=== PATIENT | female | born 1960 | race Caucasian/White ===

== ENCOUNTER 2025-09-30 15:25 | Emergency (ER) | payer MEDICARE, SELFPAY ==
--- OUTSIDE RECORDS SUMMARY | 2024-06-16 11:00 | XMS_ITS ---
Author Organization [facility] Address [address] [place] [address] Care Team Providers Care Garage Laborer Name Role Phone Graham Ham MD Primary Care Provider Luz Elena Alan Unavailable [phone] Encounters Encounter Location Date Provider Diagnosis [address] [address] 06/16/2024 Luz Elena Maharaj Plan Of Treatment Next Appt Details Provider Name:Luz Elena acevedo, 10/25/2025 02:30:00 PM, [address] [place], [address], Progress Notes * Haylee HUGHES EDOB: [birth year] (65 yo F)Acc No.[id number]:06/16/2024 Progress Note Patient: Haylee MAGANA Provider: Peggy Maharaj DPM :1960 A ge:63 Y S ex:Female Date:06/16/2024 Address:[address] [place] [address] [id number] Pcp:Graham Ham MD Subjective: * Chief Complaints: * * Medical History: Objective: * Vitals: Assessment: Plan: * Treatment: * Images: * The named appointment provid er may or may not be the originator of this progress note, and it is not deemed complete until electronically signed by the appointment provider. Sign off status: Pending * Provider: Peggy Maharaj DPM Date: 0 06/16/2024 Generated for Printi ng/Mia/Cherieitting on: 1 04:07 PM EDT
--- NOTE | 2025-09-30 | ECG_ITS ---
Test Reason : chest pain Blood Pressure : */* mmHG Vent. Rate : 82 BPM Atrial Rate : 82 BPM P-R Int : 156 ms QRS Dur : 82 ms QT Int : 362 ms P-R-T Axes : 55 63 12 degrees QTcB Int : 422 ms Normal sinus rhythm Nonspecific T wave abnormality Abnormal ECG When compared with ECG of 21-Aug-2010 07:48, Nonspecific ST and T wave abnormality present Referred By: Generic ED Physician Electronically Signed By: GURMEET JULES
--- NOTE | ~2025-09-30 | XR_ITS ---
EXAMINATION: XR CHEST CLINICAL INFORMATION: chest pain COMPARISON: None available. TECHNIQUE: 2 views of the chest were obtained. FINDINGS: Lungs are clear. Cardiac and mediastinal silhouette is within normal limits. Bony structures are unremarkable. There is no pneumothorax. XR/XR chest 2V IMPRESSION: No acute disease. Electronically signed by: Ariel Sagastume MD 09/30/2025 04:28 PM EDT RP
[2025-09-30 15:37] VITALS: BP 161/107; BP 191/100; PULSE 87; PULSE 96; RESP 17; O2SAT 100; O2SAT 98; BMI 39.9
[2025-09-30 15:42] VITALS: BP 161/107; PULSE 87; RESP 17; TEMP 36.8; O2SAT 98
--- NOTE | 2025-09-30 15:46 | ED_ITS ---
HPI - Chest Pain General Chief Complaint: Chest Pain Stated Complaint: chest pain since friday Time Seen by Provider: 09/30/25 15:46 Source: patient and EMS Mode of arrival: EMS Limitations: no limitations History of Present Illness ED Provider: Ary Johnson PA-C HPI narrative: Patient is a 65 year old assigned female at with a history of osteoporosis, HTN, OCD, hyperlipidemia presenting to the emergency department today with chest pain. Patient states that after an argument with a family member on 09/26/2025 she has had intermittent chest pain. Patient denies any other complaints at this time. Patient states that nothing makes it better, nothing makes it worse, and it comes and goes. MD complaint: chest pain Related Data Allergies Allergy/AdvReac Type Severity Reaction Status Date / Time No Known Allergies Allergy Unverified 09/30/25 15:40 Review of Systems 2 Constitutional: Constitutional: Reports as per HPI Eyes: Eyes: Reports as per HPI ENT: Reports as per HPI Cardiovascular: Cardiovascular: Reports as per HPI Respiratory: Respiratory: Reports as per HPI Gastrointestinal: Gastrointestinal: Reports as per HPI Genitourinary: Genitourinary: Reports as per HPI Musculoskeletal: Musculoskeletal: Reports as per HPI Integumentary/Breasts: Skin/Breast: Reports as per HPI Neurologic: Reports as per HPI Psychiatric: Psychiatric: Reports as per HPI Endocrine: Endocrine: Reports as per HPI Hematologic/Lymphatic: Hematologic/Lymphatic: Reports as per HPI Allergic/Immunologic: Allergic/Immunologic: Reports as per HPI PMFSH Past Medical History Attestation statement: The following information was validated with the patient. Source: old records reviewed and nursing notes reviewed Social History Social History Smoked in Last 30 Days: No Use of substances other than those prescribed or required for medical reasons: No Advance Directives: No Advance Directives Information Provided: Yes Do you have a plan to hurt others: No Plan Physical Exam 2 Vital Signs: Vital Signs: Last Vital Signs Temp 98.7 F 09/30/25 19:13 Pulse 74 09/30/25 19:13 Resp 12 09/30/25 19:13 BP 139/52 L 09/30/25 19:13 Pulse Ox 97 09/30/25 19:13 O2 Del Method Room Air 09/30/25 19:13 BMI result Body Mass Index 39.9 Const: General: cooperative, no acute distress, alert and awake Nutritional Appearance: well nourished Orientation/consciousness: patient oriented x3 HEENT: Head: Yes normal to inspection and Yes atraumatic Ears: hearing grossly normal bilaterally and external ears normal General nose exam: Normal external nose present, no nasal discharge noted and no epistaxis Face and sinus: Yes normal facial exam, No abrasion and No laceration Mouth: Normal oral and palatal mucosa present, no drooling and no muffled voice Eyes: General: appearance normal, both eyes and all related structures P eriorbital: periorbital findings normal Eyelids: Yes eyelids normal C onjunctivae: conjunctivae normal Pupils: Equal, round and reactive pupils present EOM: EOMs intact bilaterally Neck: Neck: Yes normal visual inspection and Yes full ROM Resp: Effort & Inspection: normal respiratory effort and able to speak in complete sentences Neuro: General: patient oriented x3, moves all extremities and CN's II-XI intact bilaterally Cranial nerves: Yes Equal, round and reactive pupils present Cognition (Neuro): normal cognition Extrem: General: Yes normal to inspection, Yes full ROM and Yes capillary refill normal Psych: Appearance: grossly normal Mental Status: mental status grossly normal Affect: normal affect Attitude: cooperative Thought process: N ormal thought process present Thought content: Normal thought content present Insight: Good insight present (Psych) Medications Administered Discontinued Medications Generic Name Dose Route Start Last Admin Trade Name Freq PRN Reason Stop Dose Admin Ketorolac Tromethamine 15 mg 09/30/25 17:45 09/30/25 17:58 Ketorolac Tromethamine 15 Mg/Ml Vial IVPUSH 09/30/25 17:46 15 mg ONCE ONE Administration Medical Decision Making Medical Decision Making [facility] Narrative: Patient is a 65 year old assigned female at with a history of osteoporosis, HTN, OCD, hyperlipidemia presenting to the emergency department today with chest pain. Patient's physical exam was as noted in the physical exam portion of this note and unremarkable. Patient's blood work was unremarkable. Patient's EKG was unremarkable. Patient's chest x-ray showed no acute process. I explained my physical exam findings as well as all test results to the patient. I answered all questions asked by the patient. I stressed the importance of the patient taking her medication as directed (either prescribed or as the over the counter packaging recommends). I stressed the importance of the patient following up with her primary care provider. I stressed the importance of the patient returning to the emergency department immediately if her symptoms were to worsen or if she were to develop any dizziness, shortness of breath, difficulty breathing, chest pain, blurry vision, loss of vision, nausea, vomiting, abdominal pain, fever, chills, back pain, or any other complaints. Patient verbalized agreement and understanding with this treatment plan and discharge. Differential Diagnosis Differential Diagnoses: The differential diagnosis associated with the presentation includes Chest pain Atypical chest pain NSTEMI STEMI Anxiety Admission/Observation Consideration of admission/observation: Escalation of care including admission/observation considered Patient would have been admitted to the hospital had her work up had any findings where hospital admission was appropriate and her clinical presentation warranted hospital admission. Lab Data [facility] Lab Attestation statement: I reviewed the patient's lab results. My interpretation of these results are in the [facility] Rationale portion of this note. 09/30/25 15:58 09/30/25 15:58 Labs: Lab Results 09/30/25 09/30/25 Range/Units 15:58 17:07 WBC 5.0 (4.8-10.8) X10*3/uL RBC 3.80 L (4.20-5.50) X10*6/uL Hgb 11.9 L (12.0-16.0) g/dl Hct 37.5 (37.0-47.0) % MCV 98.7 H (80.0-98.0) fL MCH 31.3 (27.0-33.0) pg MCHC 31.7 (31.0-35.0) g/dl RDW 12.5 (11.0-16.0) % Plt Count 112 L (160-400) X10*3/uL MPV 12.3 (9.4-12.3) fL Immature Gran % (Auto) 0.2 (0.0-0.4) % Neut % (Auto) 57.1 (45-73) % Lymph % (Auto) 29.1 (20-40) % [place] % (Auto) 10.4 (2-11) % Eos % (Auto) 1.6 (0-4) % Baso % (Auto) 1.6 (0-2) % Lymph # (Auto) 1.5 (1.2-4.9) X10*3/uL [place] # (Auto) 0.5 (0.1-1.2) X10*3/uL Eos # (Auto) 0.1 (0.0-0.4) X10*3/uL Baso # (Auto) 0.1 (0.0-0.2) X10*3/uL Abs Immat Gran (auto) 0.01 (0.00-0.03) X10*3/uL Absolute Neuts (auto) 2.9 (2.0-8.3) x10*3/uL Absolute Nucleated RBC 0.000 (0.0-0.012) X10*3/uL Nucleated RBC % (auto) 0.0 (0.0-0.2) /100WBC Sodium 146 H (135-145) mmol/L Potassium 3.6 (3.3-5.1) mmol/L Chloride 109 H (96-108) mmol/L Carbon Dioxide 30 H (22-29) mmol/L Anion Gap 11 L (12-20) BUN 23 H (9-16) mg/dL Creatinine 1.26 (0.5-1.4) mg/dL Estim Creat Clear Calc 55.0 Estimated GFR 42 Random Glucose 93 (60-115) mg/dL Calcium 8.5 (8.4-10.2) mg/dL Magnesium 1.9 (1.6-2.6) mg/dL Total Bilirubin 0.4 (0.0-1.0) mg/dL AST 27 (5-31) U/L ALT 14 (0-31) U/L Alkaline Phosphatase 73 (39-117) U/L Troponin I High Sens 29.8 H 31.8 H (<3.5-17.0) ng/L NT-Pro-B Natriuret Pep 446.4 H (<300) pg/mL Total Protein 5.9 L (6.5-8.0) g/dL Albumin 3.8 (3.5-5.0) g/dL Independent Interpretation I performed an independent interpretation of an: EKG and Plain X-Ray Interpretation: My interpretation is in agreement with the radiologist's impression of this imaging study. L Reason for Exam: chest pain EXAMINATION: XR CHEST CLINICAL INFORMATION: chest pain COMPARISON: None available. TECHNIQUE: 2 views of the chest were obtained. FINDINGS: Lungs are clear. Cardiac and mediastinal silhouette is within normal limits. Bony structures are unremarkable. There is no pneumothorax. XR/XR chest 2V IMPRESSION: No acute disease. Electronically signed by: Ariel Sagastume MD 09/30/2025 04:28 PM EDT RP Dictated By: Ariel Sagastume MD Signed By: Electronically signed by Ariel Sagastume MD 09/30/25 1628 I independently interpreted this EKG and am in agreement with the below findings: Vent. Rate: 82 BPM Atrial Rate: 82 BPM P-R Int: 156 ms QRS Dur: 82 ms QT Int: 362 ms P-R-T Axes: 55 63 12 degrees QTcB Int: 422 ms Normal sinus rhythm Nonspecific T wave abnormality Abnormal ECG DD/ 1533 Radiology Impression Discussion of test interpretation with radiology: I have reviewed the radiologist's reading. Independent Historian Clinical information obtained from an independent historian. History obtained from or confirmed by: EMS (EMS provided additional history and confirmed the history provided by the patient. ) Discharge Plan Discharge Clinical Impression: Atypical chest pain Patient Disposition: Home, Self-Care Instructions: Chest Pain (DC) Additional Instructions: Your work up today was reassuring there is no EMERGENT cause for your symptoms. IF you are prescribed home medications and/or you are taking over the counter medications at home - it is very important you continue to do so as prescribed / directed unless told otherwise. Follow up with your primary care provider. Return to the emergency department immediately if your symptoms worsen or if you develop any numbness, tingling, dizziness, shortness of breath, difficulty breathing, chest pain, blurry vision, loss of vision, nausea, vomiting, abdominal pain, fever, chills, back pain, or any other complaints. Please see the information below about our Patient Portal. If you are not yet enrolled in the [facility] Patient Portal, you will receive an enrollment email invitation following your visit to any [facility] setting. You may also self-enroll in the Patient Portal by visiting our website: [email or web address] The following information is required to access the Patient Portal: - Your [facility] Medical Record Number - Your personal home email address (must match what is in your electronic medical record, Registration staff can assist with this) - Name - Date of Capabilities of the Patient Portal: - Message some providers - View upcoming appointments - Access your health summary, medical history, and visit history - View current conditions and allergies - View procedure and lab results - View your medications, including guidelines, side effects, and precautions - Complete pre-appointment questionnaires requested by your provider - Ready summary reports of your office visits and procedures To access the Patient Portal Mobile Susie, follow these directions: - Search [employer] in the Susie Store or ChartsNow (now Music[employer]) Store - Download the Susie - Search for [facility] - Enter your login/password Referrals: Graham Ham MD [Primary Care Provider, Medical] Interventions: ED Discharge Assessment Last Done: 09/30/25 19:13 Discharge Date/Time: 09/30/25 20:00 Print Language: Latvian
[2025-09-30 16:05] LABS: MANUAL DIFF FLAG NO
--- OUTSIDE RECORDS SUMMARY | 2025-09-30 16:07 | XMS_ITS | Patient Health Record ---
[facility] Address [address] [place] [address] Care Team Providers Care Survey Research Center Director Name Role Phone Graham Ham MD Primary Care Provider Luz Elena Alan Unavailable [phone] Allergies No Known Allergies Reason For Referral No Information Medications Medication SIG (Take, Route, Frequency, Duration) Notes Start Date End Date Status fluvoxaMINE Maleate 100 MG Orally Active Atorvastatin Calcium 40 MG 1 tablet Oral ly Once a day; Duration: 30 day(s) Active hydroCHLOROthiazide 12.5 MG 1 capsule in the morning Orally Once a day; Duration: 30 day(s) Active Social History Tobacco use other than smoking: Question Answer Notes Are you an other tobacco user? No Problems Problem Type SNOMED Code ICD Code Onset Dates Problem Status W/U Status Risk Notes Problem Onychomycosis (549781740) Onychomycosis (110.1) Active confirmed Problem Pain in limb (45826328) Pain in Limb (729.5) Active confirmed Problem Hammer toe (004808668) Hammer toe (735.4) Active confirmed Problem Ingrowing nail (585095730) Ingrowing Nail (703.0) Active confirmed Plan Of Treatment Pending Test Test Name Order Date [id number] NAIL, 1-5 08/31/2014 [id number] Plate 08/31/2014 Next Appt Details Provider Name:Luz Elena acevedo, 10/25/2025 02:30:00 PM, [address] [facility], [place], [address], Insurance Providers Payer Name Payer Address Payer Phone Subscriber Number Group Number Insured Name Patient Relationship to Insured Coverage Start Date Coverage End Date Medicare National [employer] [address] [place] [address] [id number] Haylee Lugo Self - patient is the insured Medical (General) History Medical History History ICD Code Chicken pox Heart disease High cholesterol Psychiatric disorder Mumps Joint implants/screws cervical cancer Cancer Surgical History Surgery Date(Month/Year) hysterectomy bilateral wrist surgery lumpectomy 05/2019
--- OUTSIDE RECORDS SUMMARY | 2025-09-30 16:08 | XMS_ITS | Clinical Summary ---
Author Organization [facility], Address [address] [place] [address] Phone Care Team Providers Care Case Fitter Name Role Phone Graham Ham MD Primary Care Provider Allergies No known active allergies Medications fluvoxaMINE Maleate ER 150 MG capsule sustained-relea se 24 hr Take 1.5 capsules by mouth at bed time Active Active Problems Problem Noted Date Diagnosed Date Anemia 07/18/2020 Deep venous thrombosis 07/18/2020 Diverticulitis 07/18/2020 Hyperlipidemia 07/18/2020 Impaired cognition 07/18/2020 Impaired dentition 07/18/2020 Obsessive-compulsive disorder 07/18/2020 Onychomycosis 07/18/2020 Primary malignant neoplasm of breast 07/18/2020 Overview (08/31/2024): Replacing diagnoses that were inactivated after the 08/31/24 Regulatory Import Renal stone 07/18/2020 Social History Tobacco Use Types Packs/Day Years Used Date Smoking Tobacco: Never Smokeless Tobacco: Never Alcohol Use Standard Drinks/Week Comments Never 0 (1 standard drink = 0.6 oz pure alcohol) will have 1 drink on special occasions AUDIT-C Answer Date Recorded Q1: How often do you have a drink containing alc ohol? Never 07/19/2020 Q2: How many drinks containi ng alcohol do you have on a typical day when you are drinking? Not asked 07/19/2020 Q3: How often do you have six or more drinks on one occasion? Never 07/19/2020 Comments Unknown Sex and Gender Information Value Date Recorded Sex Assigned at Not on file Legal Sex Female 4:33 PM EST Gender Identity Not on file Sexual Orientation Not on file Last Filed Vital Signs Vital Sign Reading Time Taken Comments Blood Pressure 115/85 07/19/2020 8:59 AM EDT Pulse 86 07/19/2020 8:59 AM EDT Temperature 36.8 C (98.2 F) 07/19/2020 8:59 AM EDT Respiratory Rate 12 07/19/2020 8:59 AM EDT Oxygen Saturation 98% 07/19/2020 8:59 AM EDT Inhaled Oxygen Concentration - - Weight 97.5 kg (215 lb) 07/19/2020 8:59 AM EDT Height 175.3 cm (5' 9 ) 07/19/2020 8:59 AM EDT Body Mass Index 31.75 07/19/2020 8:59 AM EDT Plan of Treatment Health Maintenance Due Date Last Done Comments Breast Cancer Screening 1960 Pneumococcal Vaccine: 50+ Ye ars (1 of 2 - PCV) 1977 Colorectal Cancer Screening: Annual FOBT 2007 Colorectal Cancer Screening: Colonoscopy 2007 Colorectal Cancer Screening: Sigmoidoscopy 2007 Influenza Vaccine (#1) 2025 Hepatitis B Vaccine Aged Out No longe r eligible based on patient's age to complete this topic Insurance Medicare Medicaid [place] Care Teams Case Fitter Relationship Specialty Start Date End Date Graham Ham MD [employer] DES[employer] ENGINEER [address] [place], [place] [address]JASVIR [place] PCP - General 10/05/19
[2025-09-30 16:13] LABS: Hematocrit 37.5 % (37.0-47.0); Hemoglobin 11.9 g/dl (12.0-16.0); Imm Gran Abs Auto 0.01 X10*3/uL (0.00-0.03); Imm Gran Pct Auto 0.2 % (0.0-0.4); Lymphocytes Absolute Auto 1.5 X10*3/uL (1.2-4.9); Mean Corpuscular HGB Conc 31.7 g/dl (31.0-35.0); Mean Corpuscular Hemoglobin 31.3 pg (27.0-33.0); Mean Corpuscular Volume 98.7 fL (80.0-98.0); NRBC Abs Auto 0.000 X10*3/uL (0.0-0.012); NRBC Pct Auto 0.0 /100WBC (0.0-0.2); Platelet Count 112 X10*3/uL (160-400); Red Blood Count 3.80 X10*6/uL (4.20-5.50); White Blood Count 5.0 X10*3/uL (4.8-10.8)
[2025-09-30 16:19] LABS: Alanine Aminotransferase 14 U/L (0-31); Albumin Level 3.8 g/dL (3.5-5.0); Alkaline Phosphatase 73 U/L (39-117); Anion Gap 11 (12-20); Aspartate Amino Transferase 27 U/L (5-31); Blood Urea Nitrogen 23 mg/dL (9-16); Calcium 8.5 mg/dL (8.4-10.2); Carbon Dioxide 30 mmol/L (22-29); Chloride 109 mmol/L (96-108); Creatinine Clr Calc Pharmacy 55.0; Estimated Glomerular Filt Rate 42; Magnesium 1.9 mg/dL (1.6-2.6); Potassium 3.6 mmol/L (3.3-5.1); Sodium 146 mmol/L (135-145); Total Protein 5.9 g/dL (6.5-8.0)
[2025-09-30 16:26] LABS: NT Pro B Type Natriuretic Pept 446.4 pg/mL (<300); Troponin-I High Sensitivity 29.8 ng/L (<3.5-17.0)
[2025-09-30 17:33] LABS: Troponin-I High Sensitivity 31.8 ng/L (<3.5-17.0)
[2025-09-30 17:55] VITALS: BP 147/65; PULSE 79; RESP 19; O2SAT 97
--- NOTE | 2025-09-30 19:11 | PC.NURSE ---
Call placed to Pt brother Andry @ [phone] re: ride home for Pt. Andry reports either he or his sister will come to order picker Pt, ETA about 1 hr. dean of admissions aware.
[2025-09-30 19:13] VITALS: BP 139/52; PULSE 74; RESP 12; TEMP 37.1; O2SAT 97
== END 2025-09-30 20:00 | disposition home or self-care (01) ==
PROVIDERS: Physician Assistant Medical; Emergency Provider Emergency Medicine Emergency Medical Services; PCP Internal Medicine
DX: R07.89 Other chest pain (principal); I10 Essential (primary) hypertension; Z79.899 Other long term (current) drug therapy
CPT/HCPCS: 36415; 71046; 80053; 83735; 83880; 84484; 85025; 93005; 96374; 99284; 99285; J1885

== ENCOUNTER → 2025-09-30 15:33 | Outpatient (BNV) | payer MEDICARE, SELFPAY | PROVIDERS: Emergency Provider Emergency Medicine Emergency Medical Services; PCP Internal Medicine; Visit Provider Internal Medicine | DX: R94.31 Abnormal electrocardiogram [ECG] [EKG] (principal); R07.9 Chest pain, unspecified | CPT/HCPCS: 93010 ==

== ENCOUNTER → 2025-09-30 15:47 | Outpatient (BNV) | payer MEDICARE, SELFPAY | PROVIDERS: PCP Internal Medicine; Visit Provider Radiology Diagnostic Radiology | DX: R07.9 Chest pain, unspecified (principal) | CPT/HCPCS: 71046 ==